=== PATIENT | female | born 1990 | race Two or more races ===

== ENCOUNTER → 2018-10-21 11:26 | Outpatient (CLI) | payer SELFPAY | END | disposition home or self-care (01) | LOC: D.US 10-16 11:00 | DX: O26.842 Uterine size-date discrepancy, second trimester (principal); Z3A.16 16 weeks gestation of pregnancy ==

== ENCOUNTER → 2018-12-15 14:41 | Outpatient (CLI) | payer SELFPAY | END | disposition home or self-care (01) | LOC: D.LDO 14:41 | DX: O99.019 Anemia complicating pregnancy, unspecified trimester (principal); Z3A.00 Weeks of gestation of pregnancy not specified ==

== ENCOUNTER → 2018-12-22 15:18 | Outpatient (CLI) | payer SELFPAY | END | disposition home or self-care (01) | LOC: D.LDO 15:18 | DX: O99.012 Anemia complicating pregnancy, second trimester (principal); Z3A.26 26 weeks gestation of pregnancy ==

== ENCOUNTER 2018-12-29 18:52 | Outpatient (CLI) | payer SELFPAY | END 2018-12-29 22:20 | disposition home or self-care (01) | LOC: D.LDO 18:52 | DX: O99.019 Anemia complicating pregnancy, unspecified trimester (principal); Z3A.00 Weeks of gestation of pregnancy not specified ==

== ENCOUNTER → 2019-01-05 10:13 | Outpatient (CLI) | payer SELFPAY | END | disposition home or self-care (01) | LOC: D.LDO 10:13 | PROVIDERS: ATTEND Obstetrics & Gynecology | DX: O99.019 Anemia complicating pregnancy, unspecified trimester (principal); Z3A.00 Weeks of gestation of pregnancy not specified ==

== ENCOUNTER → 2019-01-31 13:03 | Outpatient (CLI) | payer SELFPAY | END | disposition home or self-care (01) | LOC: D.LDO 13:03 | PROVIDERS: ATTEND Obstetrics & Gynecology | DX: O36.8130 Decreased fetal movements, third trimester, not applicable or unspecified (principal); Z3A.32 32 weeks gestation of pregnancy ==

== ENCOUNTER → 2019-02-09 10:17 | Outpatient (CLI) | payer MEDICAID | END | disposition home or self-care (01) | LOC: D.RAD 10:17 | PROVIDERS: ATTEND Obstetrics & Gynecology | DX: R76.12 Nonspecific reaction to cell mediated immunity measurement of gamma interferon antigen response without active tuberculosis (principal) ==

== ENCOUNTER → 2019-03-30 06:34 | Outpatient (CLI) | payer MEDICAID ==
[~2019-03-30 06:34] MED LIST: IBUPROFEN800 MG PO; PERCOCET 7.5/321 TAB; PRENAVITE1 TAB PO
[2019-03-30 07:52] LABS: APPEARANCE CLEAR (CLEAR); BACTERIA MODERATE /hpf (NONE SEEN); BILIRUBIN NEGATIVE (NEGATIVE); COLOR YELLOW (YELLOW); EPITHELIAL CELLS 0-5 /hpf (0-5); GLUCOSE NEGATIVE (NEGATIVE); KETONE NEGATIVE (NEGATIVE); MUCUS <1+ /lpf (NONE SEEN); NITRITE NEGATIVE (NEGATIVE); PROTEIN NEGATIVE (NEGATIVE); WHITE CELLS - URINE 0-5 /hpf (0-5)
[2019-03-31 21:40] VITALS: BMI 24.1
== END | disposition home or self-care (01) ==
LOC: D.LDO 06:34
PROVIDERS: ATTEND Obstetrics & Gynecology
DX: O26.893 Other specified pregnancy related conditions, third trimester (principal); Z3A.40 40 weeks gestation of pregnancy

== ENCOUNTER 2019-03-31 20:15 | Inpatient (IN) | payer MEDICAID ==
[~2019-03-31] VITALS: Ht 160 cm; Wt 61.7 kg
[2019-03-31 21:27] LABS: HEMATOCRIT 34.9 % (36.0-48.0); HEMOGLOBIN 11.5 g/dL (12-16); MCH 26.9 pg (26.0-34.0); MCV 81.5 fL (80.0-100.0); MEAN PLATELET VOLUME 10.5 fL (7.4-10.4); RBC 4.28 10x6/uL (4.00-5.40); WBC 8.8 10x3/uL (4.8-10.8)
[2019-03-31 21:29] LABS: APPEARANCE CLEAR (CLEAR); BILIRUBIN NEGATIVE (NEGATIVE); COLOR YELLOW (YELLOW); GLUCOSE NEGATIVE (NEGATIVE); KETONE NEGATIVE (NEGATIVE); NITRITE NEGATIVE (NEGATIVE); PROTEIN NEGATIVE (NEGATIVE)
[2019-03-31] MEDS ORDERED: PRENAVITE1 TAB PO (21:39)
[2019-03-31 21:40] VITALS: BP 100/63; Ht 160 cm; Wt 61.7 kg
[2019-04-02] VITALS (10 sets, daily range): BP systolic 90–114; BP diastolic 52–76
[2019-04-02 07:22] LABS: RAPID PLASMA REAGIN Non Reactive (Non Reactive)
[2019-04-03] VITALS (7 sets, daily range): BP systolic 100–121; BP diastolic 54–81
[2019-04-03 05:32] LABS: BASOPHILS 0 % (0-2); EOSINOPHILS 0.3 % (0-7); HEMATOCRIT 29.6 % (36.0-48.0); HEMOGLOBIN 9.6 g/dL (12-16); IMMATURE GRANULOCYTES 0.3 % (0-5); LYMPHOCYTES 14.7 % (15-50); MCH 26.4 pg (26.0-34.0); MCHC 32.4 g/dL (31.0-37.0); MCV 81.5 fL (80.0-100.0); MEAN PLATELET VOLUME 10.4 fL (7.4-10.4); NEUTROPHILS 75.7 % (40-80); PLATELET COUNT 182 10x3/uL (130-400); RBC 3.63 10x6/uL (4.00-5.40); RDW 15.9 % (11.5-14.5); WBC 11.9 10x3/uL (4.8-10.8)
--- NOTE | 2019-04-03 09:42 | OP ---
PATIENT NAME: ADRIANO MCNULTY MEDICAL RECORD: [id number] :92 LOCATION:[id number] ADMISSION DATE:03/31/19 SURGEON: SHAYNE IVAN MD DATE OF OPERATION: 04/02/2019 PREOPERATIVE DIAGNOSES: 1. at 40 weeks' gestation. 2. Nonreassuring tracing. POSTOPERATIVE DIAGNOSES: 1. Mother delivered at 40 weeks. 2. Nonreassuring tracing. 3. OP presentation. SURGEON: Shayne Ivan MD PROCEDURE PERFORMED: Primary low transverse section. DATA CENTER ENGINEER: Moise ANESTHESIOLOGIST: Dr. Gaxiola ANESTHETIC: General endotracheal intubation with rapid sequence induction. FINDINGS: Viable male infant, OP presentation, deep in the pelvis. Apgars were 9 and 9. Weight is 2998 grams. The uterus, tubes and ovaries were unremarkable. Placenta inspected and found to be unremarkable. SPECIMEN REMOVED: Placenta. SPECIMEN DISPOSITION: Discarded. FLUIDS: 800 cc of lactated Ringer's. URINE OUTPUT: 50 cc. ESTIMATED BLOOD LOSS: 800 cc. DRAINS: Shipman to gravity. COMPLICATIONS: None. INDICATIONS: The patient is a 28-year-old G1, para 0, undergoing induction of labor at 40 weeks and 2 days. The patient was ruptured this morning and progressed rapidly from 3 cm to complete. The patient began expulsive efforts with deep variable and then terminal bradycardic event. The patient was verbally consented for an urgent section. DESCRIPTION OF PROCEDURE: After informed consent was assured, the patient was taken to the operating room where anesthetic was performed after she was prepped and draped. The incision was made in the lower abdomen, carried down to the underlying layer of the fascia, which was opened and extended laterally. Rectus bellies were dissected free, superiorly and inferiorly. The rectus bellies were now and the peritoneum entered bluntly. Bladder blade was inserted and low transverse hysterotomy was performed. was delivered onto the OPERATIVE REPORT [id number] ADRIANO MCNULTY abdomen after a labor and delivery nurse displaces the vertex from the deep pelvis. The cord was now doubly clamped and cut and the infant was passed to the waiting attendant. A segment of cord was obtained for blood gas. The placenta was now delivered via Crede maneuver. The uterus exteriorized, cleared of clot and debris, and closed in a running locked stitch of chromic. After closure of the uterus, the posterior cul-de-sac was irrigated. Irrigant was now removed. Inspection of the hysterotomy revealed bleeding at the right corner. Two interrupted stitches were applied below the level of the incision to obtain hemostasis here. Surgicel dust was now applied to the tissue surrounding the right vascular bundle and the bladder flap. The uterus was returned to the abdomen. Inspection of the hysterotomy and [place] stitches of the lower right side were found to be hemostatic. The peritoneum was reapproximated and then the fascia was closed with a looped PDS. Subcutaneous tissue was irrigated. Bleeding vessels cauterized and the skin reapproximated with fer. X-rays performed without any evidence on the denial resolution specialist film of retained instrument or sponge. The temperature during this procedure in the room is 70 degrees with humidity in excess of 57%. Due to break in the field due to perspiration, the patient will remain on antibiotics for 24 hours. TRANSINT:[id number] Voice Confirmation ID: [id number] DOCUMENT ID: [id number] SHAYNE IVAN MD at 0942 CC: [id number] DICTATION DATE: 04/02/19 1148 RUG WEAVER: 04/02/19 1229 ADM IN [facility] [address] [place] [address]
[2019-04-04 04:11] VITALS: BP 101/60
[2019-04-04] MEDS ORDERED: PERCOCET 7.5/321 TAB (14:26)
[2019-04-04] MEDS ORDERED: IBUPROFEN800 MG PO (14:27)
== END 2019-04-04 15:00 | disposition home or self-care (01) | DRG 788 ==
LOC: D.LD 20:15
PROVIDERS: ADMIT Obstetrics & Gynecology; ATTEND Obstetrics & Gynecology
PROC: 3E033VJ Introduction of Other Hormone into Peripheral Vein, Percutaneous Approach (ICD-10-PCS; 2019-03-31)
PROC: 10D00Z1 Extraction of Products of Conception, Low, Open Approach (ICD-10-PCS; principal; 2019-04-02 10:40)
DX: O99.824 Streptococcus B carrier state complicating childbirth (principal); Z3A.40 40 weeks gestation of pregnancy; Z37.0 Single live birth; O76 Abnormality in fetal heart rate and rhythm complicating labor and delivery

== ENCOUNTER → 2019-05-24 10:44 | Outpatient (CLI) | payer MEDICAID ==
[2019-03-31 21:40] VITALS: BMI 24.1
== END | disposition home or self-care (01) ==
LOC: D.US 05-12 09:00
PROVIDERS: ATTEND Obstetrics & Gynecology
DX: N63.11 Unspecified lump in the right breast, upper outer quadrant (principal)

== ENCOUNTER → 2019-12-06 09:46 | Outpatient (CLI) | payer MEDICAID ==
[2019-03-31 21:40] VITALS: BMI 24.1
== END | disposition home or self-care (01) ==
LOC: D.US 12-02 11:30
PROVIDERS: ATTEND Obstetrics & Gynecology Obstetrics
DX: N63.11 Unspecified lump in the right breast, upper outer quadrant (principal)

== ENCOUNTER 2021-02-14 11:52 | Inpatient (IN) | payer MEDICAID ==
[~2021-02-14] VITALS: Ht 160 cm; Wt 62.6 kg
--- NOTE | ~2021-02-14 | OP ---
PATIENT NAME: ADRIANO MCNULTY MEDICAL RECORD: [id number] :92 LOCATION:[id number] ADMISSION DATE:02/22/21 SURGEON: ARMIDA NUÑEZ DO DATE OF OPERATION: 02/22/2021 PREOPERATIVE DIAGNOSIS: hemorrhage. POSTOPERATIVE DIAGNOSIS: hemorrhage, retained products of conception. PRIMARY SURGEON: Armida Nuñez DO ANESTHESIA: General endotracheal tube intubation. PROCEDURE: D&C with suction. FINDINGS: Retained products of conception. SPECIMENS: Products of conception. ESTIMATED BLOOD LOSS: Less than 20 cc on procedure, 200 cc on examination prior to procedure. IV FLUIDS: Per anesthesia. URINE OUTPUT: Clear yellow urine. INFECTION PROPHYLAXIS: 2 grams Ancef, 500 mg Flagyl. COMPLICATIONS: None. Due to excessive bleeding noted postoperatively in recovery, oral consent obtained to explore under anesthesia and for possible removal of retained products. The patient and partner agreed. DESCRIPTION OF PROCEDURE: The patient was taken to the operating room where general anesthesia was administered. She was prepped and draped in normal sterile fashion and placed in dorsal lithotomy position with Fer stirrups. A speculum was placed in the vagina and anterior lip of the cervix was grasped. Prior to grasping the tenaculum, cervix was ran utilizing a ring forceps and bleeding noted, but appeared from uterine site, uterus sounded to about 8 cm appropriate for size. Medium curette used for gentle curettage to remove products. Then, 8 mm straight curettage attached to suction and additional gentle curettage was performed. Bleeding improved. Fundal massage with Kerlix packed in the vagina for pressure held for 5 minutes and then Kerlix removed. Hemostasis was adequate. Instruments were then removed from the vagina. All lap, needle and sponge counts were correct times 2. The patient was then awakened and taken to recovery room in stable condition. TRANSINT:[id number] Voice Confirmation ID: [id number] DOCUMENT ID: [id number] OPERATIVE REPORT [id number] ADRIANO MCNULTY ARMDIA NUÑEZ DO CC: [id number] DICTATION DATE: 02/22/212111 SYSTEMS INTEGRATOR: 02/23/21 0145 ADM IN [facility] [address] [place] [address]
[2021-02-22 06:07] VITALS: BP 105/68; Ht 160 cm; Wt 62.6 kg
[2021-02-22 07:37] LABS: HEMOGLOBIN 8.6 g/dL (12-16); MCH 20.4 pg (26.0-34.0); MCHC 28.7 g/dL (31.0-37.0); MCV 71.1 fL (80.0-100.0); MEAN PLATELET VOLUME 10.2 fL (7.4-10.4); RBC 4.22 10x6/uL (4.00-5.40); RDW 17.6 % (11.5-14.5); WBC 7.8 10x3/uL (4.8-10.8)
--- NOTE | 2021-02-22 08:48 | NUR ---
PATIENT REQUESTED THE PLACENTA BE GIVEN TO HER. PLACENTA PLACED IN LABELED CONTAINER AND TRANSPORTED WITH PATIENT TO RECOVERY. SURGEON AGREED. NOTED, ROSY ARMANDO
[2021-02-22 10:34] LABS: BASOPHILS 0.2 % (0-2); EOSINOPHILS 0.4 % (0-7); HEMATOCRIT 28.7 % (36.0-48.0); HEMOGLOBIN 8.2 g/dL (12-16); IMMATURE GRANULOCYTES 0.9 % (0-5); LYMPHOCYTE ABS# 1.64 10x3/uL (1.18-3.74); LYMPHOCYTES 17.7 % (15-50); MCH 20.3 pg (26.0-34.0); MCHC 28.6 g/dL (31.0-37.0); MEAN PLATELET VOLUME 10.6 fL (7.4-10.4); MONOCYTES 6.1 % (2-11); NEUTROPHIL ABS# 6.91 10x3/uL (1.56-6.13); NEUTROPHILS 74.7 % (40-80); PLATELET COUNT 217 10x3/uL (130-400); RBC 4.04 10x6/uL (4.00-5.40); RDW 17.6 % (11.5-14.5); WBC 9.3 10x3/uL (4.8-10.8)
[2021-02-22 11:10] LABS: APTT 30.6 SECONDS (22.8-39.4); INR 1.2 (0.85-1.17); PROTIME 14.1 SECONDS (11.6-15.0)
--- NOTE | 2021-02-22 11:55 | NUR ---
02/22/2021 0942 PT OUT OF PACU PHASE. UPDATES AND REPORTS PROVIDED BY ROSY CRISOSTOMO. PT THEN MOVED BY Digna AGUSTIN RN AND ROSY CRISOSTOMO FROM PACU AREA ON OB UNIT TO PTS OB ROOM 1278. FUNDAL ASSESSMENT DONE BY Digna AGUSTIN RN. FUNDUS APPEARED TO BE U/1 BUT MILDLY BOGGY. UPON PALPATION DISCHARGE NOTED THAT APPEARED TO BE MEMBRANE-LIKE. ROSY BHARDWAJ REQUESTED TO JOIN RN AND PT AT BEDSIDE. DR. DOWNS ALSO PHONE AND NOTIFIED OF RN'S CONCERN. DR. DOWNS IN ROUTE. 02/22/[address] DOWNS AT PTS BEDSIDE IN ROOM 1278 02/22/2021 0958 METHERGINE GIVEN PER MD ORDER, THEN COMPLETED VAGINAL SWEEP AT BEDSIDE.
[2021-02-22 12:47] VITALS: BP 122/81
--- NOTE | 2021-02-22 12:47 | NUR ---
REC'D BACK TO UNIT FROM PACU. AA&O X3. FF, MIDLINE AND U3 WITH SMALL AMT RUBRA LOCHIA, NO CLOTS NOTED. PERICARE DONE. TOWELS, CHUX, AND PADS CHANGED. VSS. DENIES PAIN. BOWELS SOUNDS HYPOACTIVE X4. LOWER TRANSVERSE ABD INCISION WELL APPROXIMATED WITH GLUE AND STERI STRIPS IN PLACE. SCDS ON BLE. ICE PACK PLACED.
--- NOTE | 2021-02-22 13:00 | NUR ---
FF, MIDLINE AND U3 WITH SCANT RUBRA LOCHIA AT THIS TIME. PERICARE DONE. TOWELS PADS AND CHUX CHANGED. DENIES PAIN. VSS.
--- NOTE | 2021-02-22 13:23 | NUR ---
FF, MIDLINE AND U3, SMALL RUBRA LOCHIA, NO CLOTS NOTED. DENIES PAIN AND NEEDS. ICE PACK PLACED TO PERINUEM AND LOWER TRANSVERSE ABD INCISION. PPH ASSESSMENT PER GE AT THIS TIME.
--- NOTE | 2021-02-22 13:47 | NUR ---
VSS. FF, MIDLINE AND U3, SCANT RUBRA LOCHICA, NO CLOTS. PERINUEM SLIGHTLY SWOLLEN. DENIES PAIN AND NEEDS. REPORTS THAT SHE FEELS GROGGY. ENCOURAGED TO REST AT THIS TIME, VERBALIZES UNDERSTANDING AND DENIES NEEDS.
[2021-02-22 14:10] VITALS: BP 101/80
--- NOTE | 2021-02-22 14:10 | NUR ---
VSS. FF, MIDLINE AND U3 WITH SMALL AMT RUBRA LOCHIA, NO CLOTS NOTED. REPOSITIONED TO R LATERAL TILT. PILLOW PLACED FOR COMFORT AND SUPPORT. DENIES PAIN AT THIS TIME. SPOUSE BONDING WITH . UPDATED ON POC, VERBALIZES UNDERSTANDING. INSTRUCTED ON INCENTIVE SPIROMETER, DONE X10 WITH GOOD EFFORT.
[2021-02-22 14:44] LABS: HEMATOCRIT 30.4 % (36.0-48.0); HEMOGLOBIN 8.6 g/dL (12-16); MCH 20.4 pg (26.0-34.0); MCHC 28.3 g/dL (31.0-37.0); MEAN PLATELET VOLUME 11.3 fL (7.4-10.4); NEUTROPHIL ABS# 4.47 10x3/uL (1.56-6.13); PLATELET COUNT 203 10x3/uL (130-400); RBC 4.22 10x6/uL (4.00-5.40); RDW 17.7 % (11.5-14.5)
--- NOTE | 2021-02-22 14:51 | NUR ---
VSS. FF, MIDLINE AND U2 WITH SMALL RUBRA LOCHIA, NO CLOTS NOTED. REPOSITIONED AND GOLDBERG REPOSITIONED WITH RETURN OF 50 MLS YELLOW URINE. PERICARE DONE. PADS AND TOWELS CHANGED. DENIES ADDITIONAL NEEDS AND PAIN.
[2021-02-22 15:13] LABS: ANISOCYTOSIS OCC; BASOPHILS 1 % (0-2); EOSINOPHILS 1 % (0-7); LYMPHOCYTES 29 % (15-50); MONOCYTES 2 % (2-11); NEUTROPHILS 66 % (40-80); PLATELET ESTIMATE NORMAL; TEAR DROP CELLS OCC
--- NOTE | 2021-02-22 16:41 | NUR ---
VSS. FUNDUS FIRM, MIDLINE AND U3 WITH SMALL AMT RUBRA LOCHIA. 355 MLS YELLOW URINE EMPTIED FROM GOLDBERG. QBL SINCE RETURN TO UNIT FROM PACU AT 1247= 48 MLS. PT REPOSITIONED SELF IN BED. REQUESTS TO AMBULATE. POC REVIEWED WITH PT, VERBALIZES UNDERSTANDING. DR. DOWNS CONTACTED, VSS AND QBL REVIEWED WELL PT REQUEST TO NORMALIZE, ORDERS REC'D.
--- NOTE | 2021-02-22 16:58 | NUR ---
C/O OF ABD AND INCISIONAL DISCOMFORT AND "A LITTLE NAUSEA." MEDICATED PER EMAR. NEW ICE PACKS PROVIDED. ICE WATER PROVIDED. INCENTIVE SPIROMETER DONE WITH GOOD EFFORT X10. SCD'S ON BLE. TO NBN PER NBN RN.
--- NOTE | 2021-02-22 17:24 | NUR ---
AROUSES TO VOICE. DENIES PAIN. FF, MIDLINE AND U3 WITH SCANT RUBRA LOCHIA, NO CLOTS. INCENTIVE DONE AT THIS TIME. PT REPOSITIONING SELF IN BED AND DENIES NEED FOR ASSISTANCE. INFANT RESTING IN OPEN CRIB AT BEDSIDE. SPOUSE AT BEDSIDE, SUPPORTIVE AND ATTENTIVE TO PT AND NEEDS.
[2021-02-22 19:33] VITALS: BP 106/61
--- NOTE | 2021-02-22 19:33 | NUR ---
SHIFT ASSESSMENT COMPLETED, SEE FLOWSHEET. PT LYNG IN BED WITH RESPIRATIONS EVEN AND NON LABORED. BED REMAINS LOCKED IN LOW POSITION, SIDE RAILS UPX2, FUNDUS FIRM,ML AT THE UMBILICUS. BLEEDING SCANT. PERICARE DONE AND PAD CHANGED. GOLDBERG DRAINING TO GRAVITY, 60ML COREEN URINE NOTED IN CHAMBER. TO ROOM AT THIS TIME PER NURSERY RN FOR . NO NEEDS IDENTFIED. WILL CONTINUE TO MONITOR.
--- NOTE | 2021-02-22 20:00 | NUR ---
ICE WATER PROVIDED PER PT REQUEST.
--- NOTE | 2021-02-22 20:25 | NUR ---
DR DOWNS CALLED LABOR UNIT AT THIS TIME, REPORTED SCANT BLEEDING, FUNDUS FIRM,ML AT THE U, PT DENIES PAIN. LABS REPORTED AND NEW ORDERS NOTED TO D/C GOLDBERG AND SALINE LOCK IV AT 2330 AND ALLOW PT TO AMBULATE AND ADVANCE DIET TOLERATED.
--- NOTE | 2021-02-22 20:30 | NUR ---
ICE WATER PROVIDED PER PT REQUEST.
--- NOTE | 2021-02-22 21:50 | OP ---
PATIENT NAME: ADRIANO MCNULTY MEDICAL RECORD: [id number] :92 LOCATION:[id number] ADMISSION DATE:02/22/21 SURGEON: ARMIDA NUÑEZ DO DATE OF OPERATION: 02/22/2021 DATE OF SERVICE: 02/22/2021 PREOPERATIVE DIAGNOSES: Previous section and intrahepatic cholestasis of , 37 weeks. POSTOPERATIVE DIAGNOSES: Previous section and intrahepatic cholestasis of , 37 weeks. PRIMARY SURGEON: Armida Nuñez DO ANESTHESIA: Spinal. PROCEDURE: Repeat low transverse via Pfannenstiel incision. FINDINGS: Grossly normal uterus, bilateral fallopian tubes and bilateral ovaries. Moderate adhesions, Viable male infant delivered at 8:08 a.m. Body and tight foot cord times 1, delivered breech, weight 2939 grams, Apgars 8 and 9. SPECIMENS: Cord pH and cord blood. EBL: 900 mL. IV FLUIDS: Per anesthesia. URINE OUTPUT: 150 mL clear yellow urine. INFECTION PROPHYLAXIS: 2 grams Ancef. COMPLICATIONS: None. The patient was counseled on the risks and benefits of repeat . The patient expressed understanding. Consent signed. All questions answered. DESCRIPTION OF PROCEDURE: The patient was taken to the OR where spinal anesthesia was administered and found to be adequate. She was prepped and draped in normal sterile fashion in supine position with leftward tilt. A keloid scar noted and scalpel was used to excise keloid scar in elipitcal fashion. Then pfannenstiel incision made with scalpel and carried down to the fascia with the Bovie. Fascia was incised in midline and incision extended laterally with Mac scissors. Inferior edge of facial incison grasped with Nilda clamps and rectus muscle disected off sharply. The superior edge of facial incision grasped with nilda clamps and rectus muscle dissected off sharply. Recture muscle grasped with allis clamps in midline at superior portion and scalpel used to seperate rectus in midline to peritoneum. Moderate adhesions noted, a combination of blunt and shapr disecction was used to seperate the recture muscle in the midline. Peritoneium identified in superior portion without bowel or bladder attached and entered bluntly. Muscle transected to creat more space. Gentle traction used to seperate peritoneum further. Urine from tillman assess and noted to be clear and yellow. Bladder OPERATIVE REPORT [id number] ADRIANO MCNULTY JAVON flap created with metzbaums. Bladder blade placed. Transverse incision made on uterus with a scalpel, incision extended gently superiorly and inferiorly. Head brought to incision. Amniotic sac had been intact and with fundal pressure fetus changed position to breech. Amniotic sac ruptured with forecps and clear fluid noted. Buttocks to incision and bilteral legs delivered. Foot cord noted. With gentla pressure legs and body delivered. Once scapula seen, infant gently rotated and both arms delivered with loveseat maneuver. After this, head flexed and delivered without difficulty. Mouth and nose were suctioned. Cord was clamped and cut and handed to awaiting pediatric nurse. Cord segment taken. Placenta delivered manually. Uterus then exteriorized and a dry laparotomy sponge was used to assure complete removal of all placental membranes. Uterus, tubes, ovaries grossly normal. Hysterotomy reapproximated with 0 Vicryl in a running locked fashion. Small vessel noted to be bleeding in the middle of the hysterotomy at inferior aspect, 0 Vicryl used in a xmcpst-ho-thhbo stitch with good hemostasis. Posterior Cul-de-sac irrigated and suctioned to remove blood clots and fluid. Attention then again turned to hysterotomy, which was hemostatic. Uterus replaced into the abdomen, gutters cleaned with moist laparotomy sponge of blood clots and fluid. Hysterotomy again appreciated to be without active bleeding. Interceed placed due to adhesions on the hysterotomy scar. Fascia closed in a running fashion with 0 Vicryl. Subcutaneous tissue was irrigated and active bleeders cauterized with good hemostasis. Subcutaneous layer closed in a running fashion with Vicryl and skin closed with 3-0 Monocryl in a subcuticular fashion and with Dermabond. Steri-Strips applied over top. The patient tolerated the procedure well. All lap, needle and instrument counts were correct times 2. The patient was taken to the recovery room in stable condition. TRANSINT:[id number] Voice Confirmation ID: [id number] DOCUMENT ID: [id number] ARMIDA NUÑEZ DO at 2150 CC: [id number] DICTATION DATE: 02/22/21915 MANAGER OF CHANGE: 02/22/21 1127 ADM IN [facility] [address] [place] [address]
--- NOTE | 2021-02-22 22:00 | NUR ---
LINDSAY PROVIDED PER PT REQUEST
--- NOTE | 2021-02-22 23:30 | NUR ---
IV SALINE LOCKED AND GOLDBERG CATHETER REMOVED. ICE WATER AND JELLO PROVIDED PER PT REQUEST. NO FURTHER NEEDS IDENTIFIED. PT IS NOW .
--- NOTE | 2021-02-22 23:35 | NUR ---
PERCOCET 10/325MG PO PER MD ORDERS, SEE EMAR
--- NOTE | 2021-02-23 01:58 | NUR ---
PATIENT , DENIES NEEDS, WILL CONTINUE TO MONITOR
--- NOTE | 2021-02-23 03:30 | NUR ---
PATIENT UP TO BATHROOM WITH ASSISTANCE, VOIDED 900ML CLEAR YELLOW URINE WITHOUT INCIDENT. PAD AND PANTIES PROVIDED, BED LINENS CHANGED AND PT BACK TO BED. ICE WATER AND PUDDING PROVIDED, NO FURTHER NEEDS IDENTIFIED. WILL CONTINUE TO MONITOR.
[2021-02-23 06:20] LABS: RAPID PLASMA REAGIN Non Reactive (Non Reactive)
--- NOTE | 2021-02-23 06:43 | NUR ---
PATIENT LYING IN BED HOLDING . DENIES NEEDS. WILL CONTINUE TO MONITOR
--- NOTE | 2021-02-23 07:07 | NUR ---
LAB DRAW COMPLETED PER LAB. UP TO BR WITH STANDBY ASSIST. STEADY GAIT NOTED.
[2021-02-23 07:12] VITALS: BP 108/70
--- NOTE | 2021-02-23 07:12 | NUR ---
BACK TO BED POST VOID OF 800 MLS CLEAR LIGHT YELLOW URINE. STEADY GAIT NOTED. SHIFT ASSESSMENT COMPLETED PER FLOWSHEET. VSS. FUNDUS FIRM, MIDLINE AND U2 WITH SCANT RUBRA LOCHIA, NO CLOTS NOTED. REPORTS PASSING FLATUS. LOWER TRANSVERSE ABD INCISION WELL APPROXIMATED WITH STERISTRIPS INTACT, NO DRAINGAGE NOTED. EDUCATED ON INCISIONAL CARE, VERBALIZES UNDERSTANDING. POC DISCUSSED WITH PT AND SPOUSE, BOTH VERBALIZE UNDERSTANDING AND DENY QUESTIONS. SCD'S ON BLE. ENCOURAGED AMBULATION IN [place], VERBALIZES UNDERSTANDING. C/O ABD AND INCISIONAL DISCOMFORT 2-01/17. ICE PACK PROVIDED PER REQUEST. ICE WATER PROVIDED. INCENTIVE SPIROMETER DONE X10 WITH GOOD EFFORT. DENIES ADDITIONAL NEEDS. BED IN LOW POSITION WITH SRUP X2. CALL LIGHT AND PHONE WITHIN REACH.
[2021-02-23 07:36] LABS: BASOPHILS 0.1 % (0-2); EOSINOPHILS 0.3 % (0-7); HEMATOCRIT 29.7 % (36.0-48.0); HEMOGLOBIN 8.7 g/dL (12-16); IMMATURE GRANULOCYTES 0.4 % (0-5); LYMPHOCYTE ABS# 1.78 10x3/uL (1.18-3.74); LYMPHOCYTES 16.9 % (15-50); MCH 21.9 pg (26.0-34.0); MCHC 29.3 g/dL (31.0-37.0); MEAN PLATELET VOLUME 10.2 fL (7.4-10.4); MONOCYTES 8.2 % (2-11); NEUTROPHIL ABS# 7.81 10x3/uL (1.56-6.13); NEUTROPHILS 74.1 % (40-80); PLATELET COUNT 188 10x3/uL (130-400); RBC 3.98 10x6/uL (4.00-5.40); RDW 19.3 % (11.5-14.5)
[2021-02-23 07:39] LABS: MCV 74.6 fL (80.0-100.0); WBC 10.5 10x3/uL (4.8-10.8)
--- NOTE | 2021-02-23 08:14 | NUR ---
RESTING WITH EYES CLOSED, RESP REGULAR AND UNLABORED, NO S/S OF DISTRESS NOTED. BED IN LOW POSITION WITH SRUP X2. CALL LIGHT AND PHONE WITHIN REACH.
--- NOTE | 2021-02-23 09:08 | NUR ---
INFANT. ABD CRAMPING AND INCISIONAL DISCOMFORT /, PERCOCET OFERED AND DECLINED BY PT AT THIS TIME. ICE WATER PROVIDED AND SCD'S REMOVED PER PT REQUEST, EDUCATION PROVIDED. BED IN LOW POSITION WITH SRUP X2. CALL LIGHT AND PHONE WITHIN REACH. SPOUSE AT BEDSIDE, SUPPORTIVE AND ATTENTIVE TO PT AND NEEDS.
--- NOTE | 2021-02-23 10:40 | NUR ---
C/O ABD AND INCISIONAL DISCOMFORT. MEDICATED PER EMAR PER PT REQUEST. RESTING IN OPEN CRIB AT BEDSIDE. SPOUSE AT BEDSIDE. SAFE SLEEP AND FALL PRECAUTIONS REVIEWED WITH BOTH AND UNDERSTANDING VERBALIZED. BED IN LOW POSITION WITH SRUP X2. CALL LIGHT AND PHONE WITHIN REACH. ICE WATER AND TEA PROVIDED PER REQUEST.
--- NOTE | 2021-02-23 11:21 | NUR ---
DENIES PAIN AND NEEDS AT THIS TIME. SPOUSE REMAINS AT BEDSIDE. SUPPORTIVE AND ATTENTIVE. IN OPEN CRIB AT BEDSIDE.
[2021-02-23 12:44] VITALS: BP 104/69
--- NOTE | 2021-02-23 12:47 | NUR ---
VSS. FUNDUS FIRM, MIDLINE AND U2 WITH SCANT RUBRA LOCHIA, NO CLOTS NOTED. DENIES PAIN. ICE WATER PROVIDED. GAS-X GIVEN PER ORDER. C/O ITCHING FROM ABD DOWN. DR. DOWNS ON UNIT AND NOTIFIED, WILL PLACE ORDERS. ABD BINDER PROVIDED AND PT INSTRUCTED ON USE, VERBALIZES UNDERSTANDING WILL NOTIFY RN WHEN UP AMBULATING FOR BINDER PLACEMENT.
--- NOTE | 2021-02-23 13:17 | NUR ---
PT UPDATED ON POC, VERBALIZES UNDERSTANDING AND APPRECIATION. ICE WATER AND ICE PACK PROVIDED PER REQUEST. DENIES ADDITIONAL NEEDS. SCD'S BACK ON. PT STATES THAT SHE IS GOING TO NAP AT THIS TIME.
--- NOTE | 2021-02-23 14:08 | NUR ---
UP TO SHOWER. INSTRUCTED ON BR CALL LIGHT USE, VERBALIZES UNDERSTANDING. LINEN CHANGED. CHG SOAP PROVIDED AND PT INSTRUCTED ON USE, VERBALIZES UNDERSTANDING. SPOUSE REMAINS IN ROOM AND PT REPORTS THAT SPOUSE WILL ASSIST PRN WITH SHOWER.
--- NOTE | 2021-02-23 14:42 | NUR ---
OUT OF SHOWER.BENADRYL AND HYDROCORTISONE CREAM GIVEN AND INSTRUCTED ON USE. VERBALIZES UNDERSTANDING.
--- NOTE | 2021-02-23 15:23 | NUR ---
BONDING WITH INFANT. DENIES PAIN AND NEEDS. SPOUSE AT BEDSIDE, SUPPORTIVE AND ATTENTIVE TO PT AND INFANT NEEDS. SCD'S REMAIN OFF PER PT REQUEST. BED IN LOW POSITION WITH SRUP X2. CALL LIGHT AND PHONE WITHIN REACH.
--- NOTE | 2021-02-23 15:57 | NUR ---
ABD BINDER PLACED. AMBULATORY ON UNIT. STEADY GAIT NOTED. INFANT TAKEN TO NBN PER PT REQUEST. DENIES PAIN AND NEEDS.
[2021-02-23 16:13] VITALS: BP 106/76
--- NOTE | 2021-02-23 19:15 | NUR ---
SHIFT ASSESSMENT COMPLETED AT THIS TIME. SEE FLOWSHEET. PT DENIES PAIN OR NEEDS. LOCHIA SMALL TO SCANT REPORTED WHEN VOIDING. WILL CONTINUE TO MONITOR PRN. BED LOW, WHEELS LOCKED, CALL LIGHT AND PHONE WITHIN REACH, SIDE RAILS UP X2.
[2021-02-23 19:30] VITALS: BP 110/69
--- NOTE | 2021-02-23 21:22 | NUR ---
ROUNDS MADE. PT AMB IN ROOM. DENIES NEEDS.
--- NOTE | 2021-02-23 23:42 | NUR ---
PT RINGS CALL LIGHT REQUESTING HOT TEA. SAME PROVIDED. NO FURTHER NEEDS VOICED.
--- NOTE | 2021-02-24 00:41 | NUR ---
INFANT TAKEN TO NURSERY PER REQUEST Josie PICHARDO, NURSERY RN. PT REQUESTS ICE WATER, SAME PROVIDED; NO OTHER NEEDS VOICED AT THIS TIME. C/L IN EASY REACH OF PT, WILL MONITOR.
--- NOTE | 2021-02-24 03:29 | NUR ---
ROUNDS MADE. PT RESTING SUPINE WITH RESPIRATIONS EVEN AND UNLABORED. PT LEFT UNDISTURBED.
--- NOTE | 2021-02-24 06:23 | NUR ---
ROUNDS MADE. PT SITTING UP IN BED FEEDING INFANT. DENIES PAIN OR NEEDS.
--- NOTE | 2021-02-24 09:40 | NUR ---
TO ROOM FOR AM ASSESSMENT. SEE FLOWSHEET FOR COMPLETE ASSESS. PT DENIES SOB, CHEST PAIN, DIFFICULTY BREATHING OR DIZZINESS OR N/V. PT ASKING WHEN SHE WILL BE ABLE TO BE DISCHARGED HOME. INFORMED PT AWAITING ROUNDS BY OB AND PEDI. SEE EMAR FOR ALL MEDS ADM BY THIS RN. SR UP X 2, CALL LIGHT AND PHONE WITHIN REACH.
[2021-02-24 09:45] VITALS: BP 109/67
--- NOTE | 2021-02-24 10:00 | NUR ---
DR. GOYAL AT [facility], REVIEWING VITAL SIGNS FOR THIS AM, LAB WORK POST PRBC TRANSFUSION. THEN TO ROOM TO SPEAK WITH PT.
--- NOTE | 2021-02-24 10:30 | NUR ---
PT IN SHOWER, AND WILL DRESS IN OWN CLOTHING FOR DISCHARGE. PERIPADS/PANTIES PROVIDED PER HER REQUEST. PT DENIES ALL OTHER NEEDS OR QUESTIONS. SRUPX2, CL/PHONE WITHIN REACH.
[2021-02-24 11:28] LABS: BASOPHILS 0.1 % (0-2); EOSINOPHILS 0.4 % (0-7); HEMATOCRIT 30.7 % (36.0-48.0); IMMATURE GRANULOCYTES 0.4 % (0-5); LYMPHOCYTE ABS# 1.22 10x3/uL (1.18-3.74); LYMPHOCYTES 11.9 % (15-50); MCHC 29.3 g/dL (31.0-37.0); MCV 74.9 fL (80.0-100.0); MEAN PLATELET VOLUME 10.5 fL (7.4-10.4); MONOCYTES 5.5 % (2-11); NEUTROPHIL ABS# 8.39 10x3/uL (1.56-6.13); NEUTROPHILS 81.7 % (40-80); RDW 19.8 % (11.5-14.5); WBC 10.3 10x3/uL (4.8-10.8)
[2021-02-24 11:30] LABS: PLATELET COUNT 273 10x3/uL (130-400)
--- NOTE | 2021-02-24 11:44 | NUR ---
HEMOGLOBIN RESULTS CALLED TO DR. GOYAL, TELEPHONE ORDER RECEIVED TO KAIDEN WITH PLAN FOR DISCHARGE HOME AND FOLLOW UP DR. DOWNS IN 2 WEEKS.
--- NOTE | 2021-02-24 11:45 | NUR ---
DISCHARGE INSTRUCTIONS EXPLAINED TO PT, COPIES GIVEN OF PP D/C INST, POST WARNING INFORMATION, D/C C/S INST IN [place], AND PRESCRIPTIONS GIVEN TO PT. PT DENIES QUESTIONS AT THIS TIME. AWAITING D/C OF INFANT. DIETARY SERVES REGULAR LUNCH TRAY. SRUP X2, CALL LIGHT AND PHONE WITHIN REACH.
--- NOTE | 2021-02-24 14:10 | NUR ---
PT OFF UNIT IN STABLE CONDITION, [facility] WITH Mayte KEARNEY RN.
== END 2021-02-24 14:10 | disposition home or self-care (01) | DRG 786 ==
LOC: D.LD 02-22 05:00 → D.SDCHOLD 02-22 07:30 → D.LD 02-24 14:10
PROVIDERS: Student in an Organized Health Care Education/Training Program; ADMIT Obstetrics & Gynecology; ATTEND Obstetrics & Gynecology
PROC: 10D00Z1 Extraction of Products of Conception, Low, Open Approach (ICD-10-PCS; 2021-02-22)
PROC: 10D17ZZ Extraction of Products of Conception, Retained, Via Natural or Artificial Opening (ICD-10-PCS; 2021-02-22)
PROC: 10D00Z1 Extraction of Products of Conception, Low, Open Approach (ICD-10-PCS; principal; 2021-02-22 07:30)
DX: O99.824 Streptococcus B carrier state complicating childbirth (principal); K83.1 Obstruction of bile duct; Z3A.37 37 weeks gestation of pregnancy; Z37.0 Single live birth; O26.62 Liver and biliary tract disorders in childbirth; O32.1XX0 Maternal care for breech presentation, not applicable or unspecified; O69.81X0 Labor and delivery complicated by cord around neck, without compression, not applicable or unspecified; O72.2 Delayed and secondary postpartum hemorrhage

== ENCOUNTER 2021-02-19 18:54 | Outpatient (CLI) | payer MEDICAID ==
[2019-03-31 21:40] VITALS: BMI 24.1
== END 2021-02-19 20:37 | disposition home or self-care (01) ==
LOC: D.LDO 18:54
PROVIDERS: ATTEND Student in an Organized Health Care Education/Training Program
DX: O26.619 Liver and biliary tract disorders in pregnancy, unspecified trimester (principal)